=== PATIENT | male | born 1980 | race Two or more races ===

== ENCOUNTER 2018-03-28 21:24 | Emergency (ER) | payer OTHER ==
[~2018-03-28] VITALS: Ht 182.9 cm; Wt 93.0 kg
[2018-03-28] MEDS ORDERED: LORA-258 PO (21:35)
[2018-03-28] MEDS ORDERED: ASPI-605 PO (21:35)
--- NOTE | 2018-03-28 21:39 | NUR ---
PT IN BED RESTING USING CELL PHONE. PT'S VISITOR AT BEDSIDE. PT IS AAOX4. LUNG SOUNDS ARE CLEAR. BREATH SOUNDS ARE EVEN AND UNLABORED. ABDOMEN IS FLAT AND NON-TENDER. BOWEL SOUND ARE NORMAL AND PRESENT IN ALL 4 QUADRANTS. CAP REFILL <3 SECS IN ALL FOUR EXTREMITIES. EQUAL STRENGTH NOTED IN 4 EXTREMITIES. NO SIGN OF ACCUTE DISTRESS WITNESSED AT THIS TIME.
[2018-03-28 22:13] LABS: BASOPHILS # (AUTO) 0.1 K/uL (0.0-8.0); EOSINOPHILS # (AUTO) 0.3 K/uL (0.0-0.7); EOSINOPHILS % (AUTO) 4.4 % (0.0-7.0); HEMATOCRIT 39.9 % (36.7-47.1); HEMOGLOBIN 13.7 g/dL (12.5-16.3); LYMPHOCYTES # (AUTO) 3.1 K/uL (20.0-40.0); LYMPHOCYTES % (AUTO) 46.6 % (20.5-51.5); MEAN CORPUSCULAR HEMOGLOBIN 30.4 uug (23.8-33.4); MEAN CORPUSCULAR HGB CONC 34 g/dL (32.5-36.3); MEAN CORPUSCULAR VOLUME 88.4 fL (73.0-96.2); MONOCYTES # (AUTO) 0.4 K/uL (2.0-10.0); NEUTROPHILS # (AUTO) 2.8 K/uL (1.8-8.9); PLATELET COUNT (AUTO) 238 K/uL (152-348); RED BLOOD CELL COUNT(AUTO) 4.52 MIL/uL (4.06-5.63); WHITE BLOOD COUNT (AUTO) 6.6 K/uL (3.6-10.2)
[2018-03-28 22:24] LABS: CREATININE 1.1 mg/dL (0.6-1.3); POTASSIUM 3.5 mmol/L (3.5-5.1)
[2018-03-28 22:29] LABS: BILIRUBIN,DIRECT 0.1 mg/dL (0.0-0.2); BILIRUBIN,TOTAL 0.6 mg/dL (0.2-1.0); TOTAL PROTEIN, SERUM 6.9 g/dL (6.4-8.2)
--- NOTE | 2018-03-28 23:13 | NUR ---
Patient discharged to home in stable conditon. Patient reported being pain free prior to discharge. Written and verbal after care instructions given. Patient verbalizes understanding of instructions. Patient able to ambulate unassisted with a steady gait. Patient left with all personal belongings.
[2018-03-28 23:16] VITALS: BP 124/67
== END 2018-03-28 23:13 | disposition home or self-care (01) ==
LOC: EDBD 21:24 → ER 21:24
DX: M54.12 Radiculopathy, cervical region (principal)
CPT/HCPCS: 36415; 70030-TC; 85025; 85730; 93005; A4663